=== PATIENT | male | born 1990 | race Two or more races ===

== ENCOUNTER 2019-03-07 13:57 | Emergency (ER) | payer OTHER ==
[~2019-03-07] VITALS: Ht 172.7 cm; Wt 78.0 kg
[2019-03-07 14:22] VITALS: BP 130/77
== END 2019-03-07 16:10 | disposition home or self-care (01) ==
LOC: ER 13:57
DX: S92.352A Displaced fracture of fifth metatarsal bone, left foot, initial encounter for closed fracture (principal); M19.072 Primary osteoarthritis, left ankle and foot; V00.131A Fall from skateboard, initial encounter; Y93.51 Activity, roller skating (inline) and skateboarding; Y92.89 Other specified places as the place of occurrence of the external cause; Y99.8 Other external cause status
CPT/HCPCS: 29125; 29515